=== PATIENT | female | born 1950 | race Caucasian/White ===

== ENCOUNTER 2017-07-06 12:29 | Day surgery (SDC) | payer MEDICARE, BC ==
[2017-06-26 16:11] LABS: HEMATOCRIT 41.9 % (36.0-48.0); HEMOGLOBIN 14.1 g/dL (12.0-16.0)
[~2017-07-06] VITALS: Ht 167.6 cm; Wt 52.6 kg
--- NOTE | ~2017-07-06 | OP ---
Record Of Operation [facility] [address] [place]. 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 PROCEDURE PERFORMED: 1. Left michael bullosa excision. 2. Left maxillary balloon sinusotomy. 3. Left balloon frontal sinusotomy. 4. Left superior uncinate mucocele/polypectomy. WEIGHT TRAINING INSTRUCTOR: None. ANESTHESIA: General. COMPLICATIONS: None. CONDITION: Stable to recovery. INDICATION: A 67-year-old female with persistent left superior medial periorbital headache that will trigger migraines. This has been recurrent despite antibiotic therapy and a maximal medical therapy. CT scan shows minimal sinus disease other than michael bullosa on the left side and Sundeep cells. The risks, benefits, and alternatives to a limited balloon sinuplasty were explained, and she agreed. PROCEDURE IN DETAIL: The patient was identified in preoperative holding, taken back to the operating room, and placed supine on the operating room table. General anesthesia was established. A time-out was called, and the patient and procedure were confirmed. Her nose was prepped with 1% lidocaine with 1:100,000 epinephrine injection into the nasal septum bilaterally, a total of 3 mL on each side. Afrin-soaked pledgets were placed in the inferior and middle meatus. The left middle turbinate was injected with 1 mL of 1% lidocaine with 1:100,000 epinephrine. Following this, the 0 and 30 degree endoscopy was performed in the right inferior and middle meatus were clear. The left inferior meatus were clear. The middle meatus showed a 5-6 mm mucocele/retention cyst at the convergence of the uncinate and the roof of the nasal vault. This had an associated white hyperkeratotic polyp associated with it. This was excised using up-biting cup forceps and there was mucus that drained from the cyst. An attempt was made to culture this, but there was not enough to get adequate sampling. The polyp was sent for permanent pathology. Following this, the michael bullosa excision was performed with a sickle knife incising the inferior edge of the turbinate and then using turbinate scissors to cut through the inferior portion and the medial leaflet was excised. I used the shaver microdebrider to assist with this. This opened up the left middle meatus nicely. Record Of Operation [facility] [id number] [facility] [place]. [address] NAME: GEORGES BENITEZ : 50 STATUS : [facility] PAT#: [id number] AGE: 67 ADM/REG DATE : 07/06/17 MR#: [id number] REPORT SERV DATE: 07/06/17 DICTATED BY: JIMENEZ DANIELLE DATE: 07/06/17 REPORT STATUS : Draft TRANSCRIBED BY: MODL DATE: 07/06/17 The balloon sinus catheter was then assembled for the left maxillary sinus. The guide catheter was placed just posterior to the uncinate process and the guidewire was delivered into the maxillary sinus with pinpoint illumination of the left cheek. The balloon was advanced and dilated at the medial mid and lateral portions of the maxillary ostia. Following this, the guide catheter was adjusted to the frontal mode. The guide catheter was then passed between the superior aspect of the uncinate and the anterior ethmoid air cell and the guidewire was delivered into the frontal sinus. Pinpoint illumination confirmed appropriate placement. The balloon was dilated at the superior mid and inferior aspects of the frontal recess. Balloon dilations were for five seconds each to 12 psi. No purulence was noted and this was for both the frontal and maxillary sinuses. Following this, the sinus was irrigated with saline and Stammberger gel was placed along the michael bullosa excision edge. The patient was handed to Anesthesia for awakening and returned to recovery. PH/MODL Jimenez Danielle M.D. / [id number] CC: Jimenez Danielle M.D. Matilde Watts M.D.
[~2017-07-06 12:29] MED LIST: ZOMIG ZMT2.5 MG PO
== END 2017-07-06 18:01 | disposition home or self-care (01) ==
LOC: SDC 12:29
PROVIDERS: Specialist
PROC: 09QT4ZZ Repair Left Frontal Sinus, Percutaneous Endoscopic Approach (ICD-10-PCS; 2017-07-06)
PROC: 09BV4ZZ Excision of Left Ethmoid Sinus, Percutaneous Endoscopic Approach (ICD-10-PCS; 2017-07-06)
PROC: 09QR4ZZ Repair Left Maxillary Sinus, Percutaneous Endoscopic Approach (ICD-10-PCS; 2017-07-06)
PROC: 09BL8ZZ Excision of Nasal Turbinate, Via Natural or Artificial Opening Endoscopic (ICD-10-PCS; principal; 2017-07-06 13:45)
DX: J32.2 Chronic ethmoidal sinusitis (principal); J33.8 Other polyp of sinus; J34.1 Cyst and mucocele of nose and nasal sinus; G43.909 Migraine, unspecified, not intractable, without status migrainosus; K21.9 Gastro-esophageal reflux disease without esophagitis; L30.9 Dermatitis, unspecified; Z88.5 Allergy status to narcotic agent; Z98.890 Other specified postprocedural states
CPT/HCPCS: 85014; 85018; 85730; 87015; 87070; 87075; 87102; 87116; 87205; 88304; 88305; 93005; A9270-GY; C1725; C1726; J2250; J2370; J2405; J2710; J3010